=== PATIENT | male | born 1975 | race Caucasian/White ===

== ENCOUNTER 2023-10-22 07:25 | Day surgery (SDC) | payer OTHER ==
[~2023-10-22] VITALS: Ht 172.7 cm; Wt 91.0 kg
[~2023-10-22 07:25] MED LIST: Famotidine 20 MG TAB PO SCH; LR 1,000 ML IV SCH
[2023-10-22] MEDS ORDERED: fentaNYL 50 MCG/ML 2 ML VIAL ONE (07:57)
[2023-10-22] MEDS ORDERED: Rocuronium 50 MG/5 ML Multi-Dose VIAL ONE (07:57)
[2023-10-22] MEDS ORDERED: NS 10 ML IV ONE (07:58)
[2023-10-22] MEDS ORDERED: dexAMETHasone 10 MG/ML VIAL ONE (07:58)
[2023-10-22] MEDS ORDERED: Ondansetron 4 MG/2 ML VIAL ONE (07:58)
[2023-10-22] MEDS ORDERED: hydrALAZINE 20 MG/ML 1 ML VIAL IV PRN (08:00)
[2023-10-22] MEDS ORDERED: fentaNYL 50 MCG/ML 1 ML SYRINGE/VIAL [PACU/SDC ONLY] IV PRN (08:00)
[2023-10-22] MEDS ORDERED: droPERidol 2.5 MG/ML 2 ML VIAL IV PRN (08:00)
[2023-10-22] MEDS ORDERED: HYDROmorphone 1 MG/1 ML SYRINGE [PACU/SDC ONLY] IV PRN ×2 (08:00)
[2023-10-22] MEDS ORDERED: Meperidine 50 MG/ML 1 ML VIAL IV PRN (08:00)
[2023-10-22] MEDS ORDERED: Ondansetron 4 MG/2 ML VIAL IV PRN ×2 (08:00→10:45)
[2023-10-22] MEDS ORDERED: MEVACOR10 MG PO (08:13)
[2023-10-22] MEDS ORDERED: PRINIVIL20 MG PO (08:13)
[2023-10-22] MEDS ORDERED: ZOLOFT 50MG50 MG PO (08:14)
[2023-10-22] MEDS ORDERED: ZYLOPRIM 100MG100 MG PO (08:14)
--- NOTE | 2023-10-22 08:24 | NUR ---
The patient ambulated back to [facility] independently using a steady gait and appeared to tolerate the activity well. Vital signs obtained. Consent signed. 18G IV started in left hand with one stick, LR infusing without difficulty. Assessment completed. Home medications reconcilled. Call light is within reach. Warm blanket provided.
[2023-10-22 08:34] VITALS: BP 114/74; PULSE 58; TEMP 98.5
[2023-10-22] MEDS ORDERED: Topical Skin Adhesive 1 EACH (1 ML) TOP ONE (09:46)
[2023-10-22] MEDS ORDERED: Ibuprofen 600 MG TAB PO PRN (10:45)
[2023-10-22] MEDS ORDERED: Acetaminophen 325 MG TAB PO PRN (10:45)
[2023-10-22] MEDS ORDERED: NORCO 325 MG-51 TAB PO (10:47)
[2023-10-22 11:15] VITALS: BP 104/60; PULSE 88; TEMP 97.8
--- NOTE | 2023-10-22 11:15 | NUR ---
PATIENT RETURNED TO [facility] IN AMBULATORY. HE IS A&OX4. I CALLED HIS TO LET HER KNOW HE WOULD LIKELY BE READY FOR DISCHARGE BY NOON, SHE HAS AN APPT AT 1:00 SO WON'T BE ABLE TO PICK THE PATIENT UP UNTIL AFTER 2:00. PATIENT IS AWARE. HE DOESN'T WANT ANYTHING TO EAT OR DRINK AT THIS TIME. WOULD JUST LIKE TO REST. VITAL SIGNS WNL. INCISIONS ARE CLEAN, DRY, AND INTACT. WILL CONTINUE TO MONITOR.
[2023-10-22 11:30] VITALS: BP 112/60; PULSE 85
--- NOTE | 2023-10-22 11:30 | NUR ---
PATIENT IS DOING WELL. HE STILL FEELS A LITTLE DIZZY WHEN HE RAISES HIS HEAD FROM HIS PILLOW SO HE DOESN'T WANT ANYTHING TO EAT OR DRINK AT THIS TIME. VITAL SIGNS WNL. WILL CONTINUE TO MONITOR.
[2023-10-22 11:36] VITALS: TEMP 97.6
[2023-10-22 11:45] VITALS: BP 107/64; PULSE 83
--- NOTE | 2023-10-22 11:45 | NUR ---
PATIENT IS STILL DOING WELL. HE DENIES ANY PAIN OR NAUSEA AND IS RESTING ON AND OFF. DECLINED ANYTHING TO EAT OR DRINK. HE ASKED FOR HIS CELL PHONE FOR SOMETHING TO DO. WILL CONTINUE TO MONITOR.
[2023-10-22 12:50] VITALS: BP 108/61; PULSE 78
--- NOTE | 2023-10-22 12:50 | NUR ---
PATIENT IS READY FOR DISCHARGE. HIS WON'T BE HERE FOR ANOTHER HOUR OR SO BUT HE AGREED TO GET DRESSED. IV DISCONTINUED. VITAL SIGNS WNL. HE IS GETTING UP TO USE THE RESTROOM AND HAS A STEADY GAIT. WILL DISCHARGE ONCE ARRIVES.
== END 2023-10-22 14:15 | disposition home or self-care (01) ==
LOC: SDCO 07:25
DX: K40.90 Unilateral inguinal hernia, without obstruction or gangrene, not specified as recurrent (principal); K21.9 Gastro-esophageal reflux disease without esophagitis
CPT/HCPCS: C1781; J0690; J1100; J2405; J2704; J3010; J7120